=== PATIENT | female | born 1940 | race Caucasian/White ===

== ENCOUNTER → 2018-02-17 13:54 | Outpatient (CLI) | payer MEDICARE, SELFPAY ==
[2018-02-17 14:32] LABS: International Normalized Ratio 3.6
== END ==
PROVIDERS: Family Provider Family Medicine; PCP Family Medicine; Referring Provider Family Medicine; Visit Provider Family Medicine
DX: Z86.711 Personal history of pulmonary embolism (principal)
CPT/HCPCS: 85610

== ENCOUNTER 2018-02-18 12:15 | Emergency (ER) | payer MEDICARE, SELFPAY ==
[2018-02-18 12:16] VITALS: BP 126/70; PULSE 61; RESP 16; TEMP 36.8; O2SAT 97; BMI 20.5
[2018-02-18 12:52] LABS: Absolute Lymphocyte Count 1.58 X10^3/ul (0.83-4.51); Absolute Neutrophil Count 5.8 X10^3/uL (2.0-7.7); Basophil# 0.01 X10^3/uL; Basophil% 0.1 % (0-1); Eosinophil# 0.12 X10^3/uL; Eosinophils% 1.4 % (0-5); Hematocrit 40.8 % (37-47); Hemoglobin 13.3 g/dl (12.0-15.0); Lymphocyte # 1.58 X10^3/ul (4.0); Lymphocyte % 18.7 % (19-41); Mean Corp Hgb Conc 32.6 g/gl (32-36); Mean Corpuscular Hgb 30.2 pg (27.0-32.0); Mean Corpuscular Volume 92.5 fL (81-99); Mean Platelet Vol. 9.6 fl (6.2-12.0); Monocyte# 0.91 X10^3/uL; Monocyte% 10.8 % (0-10); Neutrophil # 5.81 X10^3/uL (2.7-7.7); Neutrophil % 68.9 % (47-70); Platelet Count 237 K/mm3 (150-450); RBC Distribution Width CV 14.4 % (11.6-14.6); RBC Distribution Width SD 48.5 fl (35.1-43.9); Red Blood Count 4.41 M/mm3 (4.2-5.4); White Blood Count 8.4 K/mm3 (4.4-11.0)
[2018-02-18 12:54] LABS: POSITIVE COUNT NO; POSITIVE DIFFERENTIAL NO; POSITIVE MORPHOLOGY NO
[2018-02-18] MEDS: 0.9% Normal Saline 1,000 ML 1000 ML IV (12:57)
[2018-02-18 13:20] LABS: International Normalized Ratio 2.9; Prothrombin Time (Protime)PT. 30.5 SECONDS (11.7-14.9)
[2018-02-18 13:38] LABS: AST(SGOT) 167 U/L (15-37); Alanine Aminotransfer ALT/SGPT 194 U/L (13-56); Alkaline Phosphatase 346 U/L (45-117); Anion Gap 8 (5-15); BUN 10 mg/dL (7-18); BUN/Creat Ratio 15.5 RATIO (10-20); Chloride 101 mmol/L (98-107); Creatinine, Serum 0.64 mg/dL (0.55-1.02); EST Glomerular Filtration Rate 94 mL/min (>60); Est Glom Filt Rate - Afr Amer 114 mL/min (>60); Estimated Creatinine Clearance 43.37 ml/min; Globulin 4.6 g/dL (2.2-4.2); Glucose 97 mg/dL (74-106); Lipase 55 U/L (73-393); Potassium 4.3 mmol/L (3.5-5.1); Protein, Total 7.6 g/dL (6.4-8.2); Sodium Level 136 mmol/L (136-145)
--- NOTE | 2018-02-18 14:02 | ED.VISSUMM ---
- ER Visit Summary Date of Service: 02/18/18 Chief Complaint: In for evaluation of abnormal labs and losing elevated PT on Coumadin, elevated liver enzymes History of Present Illness: The patient is a 78 F history of prior PE on Coumadin. 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 She had screening labs done yesterday at the [facility] they returned elevated and he wanted her further evaluated. She has had some recent mild diarrhea 3 or less episodes per day. Denies any melena. No fever. No abdominal pain. She denies any gross hematuria. Physical Examination: Well-appearing older female. Vital signs are stable and afebrile. She does not look septic or toxic. She is in no acute distress. H EENT exam unremarkable. Moist mucous membranes. Neck nontender. No lymphadenopathy. Lungs clear to auscultation bilaterally. Heart regular rate chronic A. fib. Abdomen is soft and nontender. Normal bowel sounds. No peritoneal signs. She is moving both upper extremities. She is paralyzed from the waist down due to MS. She does have normal touch sensation in both lower extremities. Neurologically other than her lower extremity paralysis she is awake and alert. Test Results: BC normal. White count 8. Hemoglobin 13. Electrolytes her potassium today is 4.3 yesterday it was 5.9 that has improved. Normal BUN and creatinine. Liver enzymes are elevated but are improved from yesterday. Her alk phos is 346 it was 381 yesterday. Her ALT is 194 it was 200 yesterday and her AST was 167 was 379 yesterday. Lipase is 55. INR is elevated but better than yesterday it is currently 2.9. Emergency Department Course and Treatment: Repeat exam patient is doing well at 3. Had a long discussion with her and her daughter. They are comfortable with her being discharged home. She will hold but restart her Coumadin tomorrow. They will follow-up with repeat liver enzymes in the next several weeks and a repeat INR. Treatment Plan: Follow-up with her doctor for repeat testing. Disposition: Discharge Impression: Evaluation for abnormal labs. Supratherapeutic anticoagulation Elevated liver enzymes improving. Of uncertain etiology This note was generated with [employer] software. It may contain incorrect words, spelling, and punctuation that were not noted in review of the chart prior to signing ED Disposition - Plan for ED Patient: Chief Complaint: Abn Labs Referrals: Hung Corral MD [Primary Care Provider] -
--- NOTE | 2018-02-18 14:08 | ED.DCSUM_ITS ---
- ER Visit Summary Date of Service: 02/18/18 Chief Complaint: In for evaluation of abnormal labs and losing elevated PT on Coumadin, elevated liver enzymes History of Present Illness: The patient is a 78 F history of prior PE on Coumadin. Also hypothyroidism and MS to the point where she is paralyzed her l ower extremities and wheelchair-bound. She had screening labs done yesterday at the [facility] they returned elevated and he wanted her further evaluated. She has had some recent mild diarrhea 3 or less episodes per day. Denies any melena. No fever. No abdominal pain. She denies any gross hematuria. Physical Examination: Well-appearing older female. Vital signs are stable and afebrile. She does not look septic or toxic. She is in no acute distress. H EENT exam unremarkable. Moist mucous membranes. Neck nontender. No lymphadenopathy. Lungs clear to auscultation bilaterally. Heart regular rate chronic A. fib. Abdomen is soft and nontender. Normal bowel sounds. No peritoneal signs. She is moving both upper extremities. She is paralyzed from the waist down due to MS. She does have normal touch sensation in both lower extremities. Neurologically other than her lower extremity paralysis she is awake and alert. Test Results: BC normal. White count 8. Hemoglobin 13. Electrolytes her potassium today is 4.3 yesterday it was 5.9 that has improved. Normal BUN and creatinine. Liver enzymes are elevated but are improved from yesterday. Her alk phos is 346 it was 381 yesterday. Her ALT is 194 it was 200 yesterday and her AST was 167 was 379 yesterday. Lipase is 55. INR is elevated but better than yesterday it is currently 2.9. Emergency Department Course and Treatment: Repeat exam patient is doing well at 3. Had a long discussion with her and her daughter. They are comfortable with her being discharged home. She will hold but restart her Coumadin tomorrow. They will follow-up with repeat liver enzymes in the next several weeks and a repeat INR. Treatment Plan: Follow-up with her doctor for repeat testing. Disposition: Discharge Impression: Evaluation for abnormal labs. Supratherapeutic anticoagulation Elevated liver enzymes improving. Of uncertain etiology This note was generated with [employer] software. It may contain incorrect words, spelling, and punctuation that were not noted in review of the chart prior to signing ED Disposition - Plan for ED Patient: Chief Complaint: Abn Labs Referrals: Hung Corral MD [Primary Care Provider] -
--- NOTE | 2018-02-18 14:08 | ED.DEP ---
ED Disposition - Plan for ED Patient: Disposition: Home or Assisted Living Chief Complaint: Abn Labs Referrals: Hung Corral MD [Primary Care Provider] - 1-2 Weeks Additional Instructions: Fluids and rest. Follow-up your primary care physician's office to have your Coumadin level rechecked in the next several weeks. Also have your liver enzymes rechecked. They are currently improving. Your potassium today was normal. Your INR today was much better it was 2.9. Hold your Coumadin today restart tomorrow.
[2018-02-18 14:20] VITALS: BP 131/73; PULSE 66; RESP 18; O2SAT 94
== END 2018-02-18 14:31 | disposition home or self-care (01) ==
PROVIDERS: Emergency Provider Emergency Medicine; Family Provider Family Medicine; PCP Family Medicine
DX: R74.8 Abnormal levels of other serum enzymes (principal); Z86.711 Personal history of pulmonary embolism; Z79.01 Long term (current) use of anticoagulants; E03.9 Hypothyroidism, unspecified; G35 Multiple sclerosis; Z79.899 Other long term (current) drug therapy
CPT/HCPCS: 80048; 80076; 83690; 85025; 85610; 96360; 96361; 99284; J7030; A4216

== ENCOUNTER → 2018-07-29 12:40 | Outpatient (CLI) | payer MEDICARE, SELFPAY ==
[2018-07-29 13:25] LABS: International Normalized Ratio 2.4; Prothrombin Time (Protime)PT. 25.9 SECONDS (11.7-14.9)
== END ==
PROVIDERS: Family Provider Family Medicine; PCP Family Medicine; Referring Provider Family Medicine; Visit Provider Family Medicine
DX: Z79.01 Long term (current) use of anticoagulants (principal)
CPT/HCPCS: 85610

== ENCOUNTER → 2018-08-12 12:42 | Outpatient (CLI) | payer MEDICARE, SELFPAY ==
[2018-08-12 13:14] LABS: International Normalized Ratio 2.3
== END ==
PROVIDERS: Family Provider Family Medicine; PCP Family Medicine; Referring Provider Family Medicine; Visit Provider Family Medicine
DX: Z86.711 Personal history of pulmonary embolism (principal)
CPT/HCPCS: 85610

== ENCOUNTER → 2018-09-02 13:03 | Outpatient (CLI) | payer MEDICARE, SELFPAY ==
[2018-09-02 14:08] LABS: International Normalized Ratio 2.6
== END ==
PROVIDERS: Family Provider Family Medicine; PCP Family Medicine; Referring Provider Family Medicine; Visit Provider Family Medicine
DX: Z86.711 Personal history of pulmonary embolism (principal)
CPT/HCPCS: 85610

== ENCOUNTER → 2018-10-04 12:24 | Outpatient (CLI) | payer MEDICARE, SELFPAY ==
[2018-10-04 12:43] LABS: Prothrombin Time (Protime)PT. 39.7 SECONDS (11.7-14.9)
== END ==
PROVIDERS: Family Provider Family Medicine; PCP Family Medicine; Referring Provider Family Medicine; Visit Provider Family Medicine
DX: Z86.711 Personal history of pulmonary embolism (principal)
CPT/HCPCS: 85610

== ENCOUNTER → 2018-10-12 15:16 | Outpatient (CLI) | payer MEDICARE, SELFPAY ==
[2018-10-12 15:39] LABS: International Normalized Ratio 2.2; Prothrombin Time (Protime)PT. 24.2 SECONDS (11.7-14.9)
== END ==
PROVIDERS: Family Provider Family Medicine; PCP Family Medicine; Referring Provider Family Medicine; Visit Provider Family Medicine
DX: Z86.711 Personal history of pulmonary embolism (principal)
CPT/HCPCS: 85610

== ENCOUNTER → 2018-10-27 13:04 | Outpatient (CLI) | payer MEDICARE, SELFPAY ==
[2018-10-27 13:24] LABS: International Normalized Ratio 2.4; Prothrombin Time (Protime)PT. 25.9 SECONDS (11.7-14.9)
== END ==
PROVIDERS: Family Provider Family Medicine; PCP Family Medicine; Referring Provider Family Medicine; Visit Provider Family Medicine
DX: Z86.711 Personal history of pulmonary embolism (principal)
CPT/HCPCS: 85610

== ENCOUNTER → 2019-06-15 06:40 | Outpatient (CLI) | payer MEDICARE, SELFPAY | PROVIDERS: Family Provider Family Medicine; PCP Family Medicine; Referring Provider Family Medicine; Visit Provider Family Medicine | DX: R07.89 Other chest pain (principal) | CPT/HCPCS: 78452; 93017; A9500; A4216; J2785 ==

== ENCOUNTER 2019-06-15 08:30 | Emergency (ER) | payer MEDICARE, SELFPAY ==
[2019-06-15 08:31] VITALS: BP 157/104; PULSE 117; RESP 15; TEMP 36.2; O2SAT 98; BMI 21.2
--- NOTE | 2019-06-15 08:44 | RAD_ITS ---
STUDY: X-RAY CHEST REASON FOR EXAM: Female, 79 years old. HAVING STRESS TEST AND HAD AFIB WITH RVR. H/O AFIB, ON METOPROLOL. HELP MED FOR STRESS TEST TECHNIQUE: Single AP portable view of the chest. COMPARISON: None. FINDINGS: EKG electrodes are seen. Hyperinflation. The lungs are clear. There is no demonstrated pleural abnormality. Normal size heart. Normal mediastinum and leonor. Normal visualized pulmonary arteries. There is atherosclerotic calcification of the aortic arch with tortuosity. There are degenerative changes of the visualized thoracic spine. There is degenerative osteoarthritis of the bilateral shoulders. Moderate sized hiatal hernia. RAD/Chest 1 View (Portable) IMPRESSION: Hyperinflation. The lungs are clear. Moderate sized hiatal hernia. Electronically Signed: Lan Cantu, at 9:06 EST , Service support ,
--- NOTE | 2019-06-15 08:44 | EKG12_ITS ---
Test Reason : GEN ILLNESS Blood Pressure : / mmHG Vent. Rate : 123 BPM Atrial Rate : 129 BPM P-R Int : 176 ms QRS Dur : 086 ms QT Int : 294 ms P-R-T Axes : 042 029 068 degrees QTc Int : 420 ms Atrial Fibrillation with occasional Premature ventricular complexes Nonspecific ST/T wave abnormality Marked ST abnormality, possible inferior subendocardial injury Abnormal ECG Confirmed by DILIA VALENTINE, SCARLETT ([id number]), purchase request editor MELODIE MARINELLI ([id number]) on 06/20/2019 7:52:50 AM Referred By: ANGELICA Confirmed By:SCARLETT DOBBS MD
--- NOTE | 2019-06-15 08:47 | ED.VISSUMM ---
- ER Visit Summary Date of Service: 06/15/19 Chief Complaint: Elevated heart rate and chest discomfort History of Present Illness: The patient is a 79 F history of MS and wheelchair-bound, multiple PEs on Coumadin, hypertension and A. fib in the past. Patient came in today for an outpatient stress test. And accelerated heart rate and sent her to the ER to be evaluated. She denies any nausea, vomiting or diarrhea. No melena. No fever. Says that she has had intermittent chest pain for about a week. Intermittent accelerated heart rate. Physical Examination: Older female. Vital signs are stable but she is tachycardic on my exam heart rates in the 122 range. H EENT exam unremarkable. Moist mucous membranes. Neck nontender no lymphadenopathy. Lungs clear to auscultation bilaterally. Heart tachycardic rate about 120 appears to be A. fib RVR on the monitor. Chest wall nontender. Abdomen soft nontender. Normal bowel sounds no peritoneal signs. Extremities she has severe weakness in both lower extremities from her chronic MS. Calves are nontender without edema or cords. Neurologically she is awake. She has extremity weakness from her MS. She is talking. And acting appropriately. Skin unremarkable. Test Results: Chest x-ray one view portable shows a hiatal hernia. Otherwise no acute process read both myself and the radiologist. Initial EKG was A. fib rapid rate 123. With rate dependent depression. CBC white count of 6. Hemoglobin 12. Chemistries unremarkable normal gap and creatinine. Patient is on Coumadin INR is 1.9. Troponin normal. Emergency Department Course and Treatment: Patient undergo cardiac work-up. She will also have a PT/INR checked due to her being on Coumadin. A urinalysis will be obtained due to the complaint of recent strong urine. And she will be started on IV Cardizem for A. fib RVR. 10:10 AM. Heart rate is now about 84 after the Cardizem. Patient doing well. Pain-free. Symptom-free. Treatment Plan: Discharged home outpatient follow-up continue her current meds. Return if worse. Patient want to try to get a stress test that she was scheduled for today. We spoke to stress lab and the meat processor involved and he wanted to be done at a different date due to the circumstances today. Disposition: dc Impression: Acute A. fib RVR (history of A. fib) Anticoagulated on Coumadin History of MS and wheelchair-bound This note was generated with [employer] dictation software. It may contain incorrect words, spelling, and punctuation that were not noted in review of the chart prior to signing ED Disposition - Plan for ED Patient: Referrals: Hung Corral MD [Primary Care Provider] -
[2019-06-15] MEDS: dilTIAZem 25 MG/5 ML Vial IV BOLUS (09:04)
[2019-06-15 09:05] LABS: Absolute Lymphocyte Count 1.85 X10^3/uL (0.83-4.51); Absolute Neutrophil Count 4.2 X10^3/uL (2.0-7.7); Basophil# 0.04 X10^3/uL; Basophil% 0.6 % (0-1); Eosinophil# 0.17 X10^3/uL; Eosinophils% 2.5 % (0-5); Hematocrit 38.9 % (37-47); Hemoglobin 12.4 g/dL (12.0-15.0); Lymphocyte # 1.85 X10^3/ul (4.0); Lymphocyte % 26.8 % (19-41); Mean Corp Hgb Conc 31.9 g/dL (32-36); Mean Corpuscular Volume 90.9 fL (81-99); Mean Platelet Vol. 9.6 fl (6.2-12.0); Monocyte# 0.69 X10^3/uL; NRBC Flagged by Analyzer 0 % (0-5); Neutrophil # 4.15 X10^3/uL (2.7-7.7); Platelet Count 305 K/mm3 (150-450); RBC Distribution Width CV 15.4 % (11.6-14.6); RBC Distribution Width SD 50.8 fl (35.1-43.9); Red Blood Count 4.28 M/mm3 (4.2-5.4); White Blood Count 6.9 K/mm3 (4.4-11.0)
[2019-06-15 09:14] LABS: Anion Gap 3 (5-15); BUN 17 mg/dL (7-18); BUN/Creat Ratio 22.7 RATIO (10-20); Calcium,Total 9.8 mg/dL (8.5-10.1); Chloride 112 mmol/L (98-107); Creatinine, Serum 0.75 mg/dL (0.55-1.02); EST Glomerular Filtration Rate 79 mL/min (>60); Est Glom Filt Rate - Afr Amer 96 mL/min (>60); Estimated Creatinine Clearance 44.23 ml/min; Glucose 98 mg/dL (74-106); Potassium 3.9 mmol/L (3.5-5.1); Sodium Level 143 mmol/L (136-145)
[2019-06-15 09:17] LABS: International Normalized Ratio 1.9; Prothrombin Time (Protime)PT. 21.3 SECONDS (11.7-14.9)
[2019-06-15 09:18] LABS: Bacteria 0 SEEN /hpf (None Seen); Mucous, Urine 0 SEEN /hpf (<or=2+); White Blood Cells 0 SEEN /hpf (0-5)
[2019-06-15 09:22] LABS: Color, Urine Straw (Yellow); Glucose, Dipstick Normal (Normal); Ketone-Dipstick Negative (Negative); Leukocyte Esterase-Dipstick Negative /ul (Negative); Nitrite-Dipstick Negative (Negative); Occult Blood-Urine 10 /ul (Negative); Protein-Dipstick Negative (Negative); Urine Bilirubin Dipstick Negative (Negative); Urine Clarity Sl. Cloudy (Clear); Urine Urobilinogen Normal (Normal)
[2019-06-15 09:36] LABS: Red Blood Cells-Urine 0-5 SEEN /hpf (0-5); Squamous Epithelial Cells - UA 0-5 SEEN /hpf (5-10)
--- NOTE | 2019-06-15 10:27 | ED.DEP ---
ED Disposition - Plan for ED Patient: Disposition: Home or Assisted Living Instructions: Atrial Fibrillation Referrals: Hung Corral MD [Primary Care Provider] - As Needed Additional Instructions: Reschedule your stress test. We spoke with them and they want to redo it another day. Continue your current medications.
[2019-06-15 10:48] VITALS: BP 121/69; PULSE 84; RESP 18; O2SAT 99
== END 2019-06-15 10:50 | disposition home or self-care (01) ==
PROVIDERS: Emergency Provider Emergency Medicine; PCP Family Medicine
DX: I48.91 Unspecified atrial fibrillation (principal); Z79.01 Long term (current) use of anticoagulants; G35 Multiple sclerosis; Z99.3 Dependence on wheelchair; K44.9 Diaphragmatic hernia without obstruction or gangrene; I10 Essential (primary) hypertension; Z86.711 Personal history of pulmonary embolism; Z79.899 Other long term (current) drug therapy
CPT/HCPCS: 71045; 78452; 80048; 81001; 84484; 85025; 85610; 93005; 93017; 96374; 99284; A9500; P9612; A4216

== ENCOUNTER → 2019-06-29 06:13 | Outpatient (CLI) | payer MEDICARE, SELFPAY ==
[2019-06-15 08:31] VITALS: BMI 21.2
--- NOTE | 2019-06-29 15:47 | STRESSREP ---
Stress Test Report Date: 06/29/2019 Procedure: Pharmacologic stress nuclear imaging study Indications: Chest pain, palpitations Consent: Per the patient Procedure: The patient underwent pharmacologic (Regadenoson) evaluation with a peak heart rate of 93 beats per minute (66 %predicted maximal heart rate) and a peak blood pressure of 138/80 mmHg. The baseline ECG demonstrated normal sinus rhythm, nonspecific ST-T changes. EKG during lexiscan infusion revealed no significant ischemic changes. EKG post infusion revealed no significant ischemic changes Patient had frequent PVCs in the post infusion period. Patient had chest pressure post infusion which could be a nonspecific response. The examination was discontinued secondary to completion of protocol. Impression: 1. Lexiscan stress test test is negative for Lexiscan infusion induced EKG changes of ischemia. 2. Lexiscan stress test test is positive for Lexiscan infusion induced chest pressure which could be a nonspecific response. 3. Results of the nuclear portion of the test is as below Myocardial perfusion imaging study: Technique: The patient was injected with 11.7 millicuries of technetium 99m Cardiolite and subsequently rest SPECT Cardiolite nuclear imaging was obtained in the horizontal long, vertical long, and short axis views. The patient underwent pharmacologic (Regadenoson) evaluation. Please see above for details. The patient was injected with 32.5 millicuries of technetium 99m Cardiolite and subsequently stress SPECT Cardiolite nuclear imaging was obtained in the horizontal long, vertical long, and short axis views. A gated Cardiolite study at peak stress was obtained. Interpretation: Rest and stress SPECT Cardiolite nuclear imaging status post realignment, normalization, and attenuation correction demonstrate normal myocardial radioisotope uptake. Gated images reveal no significant regional wall motion abnormalities. The reported LVEF is greater than 70 %. Impression: 1. There is no evidence of significant ischemia or infarction. 2. Estimated ejection fraction is greater than 70%. This note was generated with [employer]ation software. It may contain incorrect words, spelling, and punctuation that were not noted in checking the note before signing.
== END ==
PROVIDERS: PCP Family Medicine; Referring Provider Family Medicine; Visit Provider Family Medicine
DX: R07.89 Other chest pain (principal)
CPT/HCPCS: 78452; 93017; A9500; A4216; J2785